=== PATIENT | female | born 1955 | race Caucasian/White ===

== ENCOUNTER → 2017-11-02 | Outpatient (CLI) | payer OTHER ==
[~2017-11-02] MED LIST: ABILIFY; ALEN70 PO; AMIT50 PO; AMIT75; AMITRIPTYLINE HCL; ARIP30 PO; ASPI325EC PO; ATOR40TA; ATOR40TA PO; CLON1; CLON2; CLON2 PO; CLOP75 PO; DIPH50; DIPH50 PO; DIVA500EC; DIVA500ER; EFFEXOR; FISH OIL 1,0001 EAC1; HYDACE5 PO; HYDPAM50 PO; IBUP800; K-Dur 20 meq T20 MEQ PO; LEVSOD75 PO; LINZESS145 MCG PO; LOPE2C PO; LORA2 PO; OMEPRAZOLE MAGN20 MG PO; OXYACE5T PO; Omeprazole20 M1 PO; PANT40 PO; PRED20; PROACE100; PROM25 PO; Percocet 5-3251 EACH PO; QUET200; QUET25 PO; Questran4 GM PO; SACC250C PO; SPIRIVA RESPIMAT4 GM INH; THYR60 PO; TRAZ100 PO; UNKNOWN MED; VITAMIN D-32000 UNIT PO; Ventolin/Prove6.7 GM INH; ZIPR80 PO
[2017-11-02 10:55] LABS: BASOPHILS ABSOLUTE AUTO 0.02 K/mm3 (0.00-0.23); BASOPHILS PERCENT AUTO 0 % (0-2); EOSINOPHILS ABSOLUTE AUTO 0.05 K/mm3 (0.00-0.68); EOSINOPHILS PERCENT AUTO 1 % (0-6); Hematocrit 37.6 % (33.0-51.0); Hemoglobin 12.2 g/dL (11.5-16.0); IMMATURE GRAN ABSOLUTE AUTO 0.01 K/mm3 (0.00-0.10); IMMATURE GRAN PERCENT AUTO 0 % (0-1); LYMPHOCYTES ABSOLUTE AUTO 1.09 K/mm3 (0.84-5.20); LYMPHOCYTES PERCENT AUTO 19 % (21-46); MONOCYTES ABSOLUTE AUTO 0.36 K/mm3 (0.16-1.47); MONOCYTES PERCENT AUTO 6 % (4-13); Mean Corpuscular HGB 27.9 pg (26.0-34.0); Mean Corpuscular HGB Conc 32.4 g/dL (31.5-36.5); Mean Corpuscular Volume 86 fL (80-100); Mean Platelet Volume 8.4 fL (9.1-12.4); NEUTROPHILS ABSOLUTE AUTO 4.24 K/mm3 (1.96-9.15); NEUTROPHILS PERCENT AUTO 74 % (41-73); Platelet Count 208 K/mm3 (150-400); RDW Coefficient Variation 14.7 % (11.7-14.2); Red Blood Cell Count 4.38 M/mm3 (3.80-5.20); White Blood Cell Count 5.77 K/mm3 (4.00-11.30)
[2017-11-02 11:03] LABS: Albumin, Blood 3.6 g/dL (3.4-5.0); Albumin/Globulin Ratio 0.9 (0.8-1.8); Bilirubin, Total 0.2 mg/dL (0.1-1.0); Bun/Creatinine Ratio 8.7 (12.0-20.0); Calcium, Blood 8.4 mg/dL (8.5-10.1); Creatinine, Blood 1.03 mg/dL (0.40-1.00); Globulin, Blood 3.9 g/dL (2.2-4.0); Potassium, Blood 4.2 mmol/L (3.5-5.5); Total Protein, Blood 7.5 g/dL (6.4-8.2)
== END | disposition home or self-care (01) ==
LOC: LAB EV 10:49
PROVIDERS: Physician Assistant
DX: R06.01 Orthopnea (principal)
CPT/HCPCS: 80053; 83880; 85025

== ENCOUNTER 2018-02-04 18:03 | Observation (INO) | payer OTHER ==
[~2018-02-04] VITALS: Ht 152.4 cm; Wt 75.3 kg
[~2018-02-04 18:03] MED LIST changes: -ASPI325EC PO; -ATOR40TA; -ATOR40TA PO; -CLOP75 PO; -FISH OIL 1,0001 EAC1; -HYDPAM50 PO; -K-Dur 20 meq T20 MEQ PO; -LEVSOD75 PO; -LINZESS145 MCG PO; -LOPE2C PO; -OMEPRAZOLE MAGN20 MG PO; -Omeprazole20 M1 PO; -PANT40 PO; -Questran4 GM PO; -SACC250C PO; -SPIRIVA RESPIMAT4 GM INH; -VITAMIN D-32000 UNIT PO; -Ventolin/Prove6.7 GM INH
[2018-02-04 19:11] LABS: BASOPHILS ABSOLUTE AUTO 0.06 K/mm3 (0.00-0.23); BASOPHILS PERCENT AUTO 1 % (0-2); EOSINOPHILS ABSOLUTE AUTO 0.17 K/mm3 (0.00-0.68); EOSINOPHILS PERCENT AUTO 2 % (0-6); Hematocrit 34.3 % (33.0-51.0); Hemoglobin 11.1 g/dL (11.5-16.0); IMMATURE GRAN ABSOLUTE AUTO 0.02 K/mm3 (0.00-0.10); IMMATURE GRAN PERCENT AUTO 0 % (0-1); LYMPHOCYTES ABSOLUTE AUTO 2.42 K/mm3 (0.84-5.20); LYMPHOCYTES PERCENT AUTO 25 % (21-46); MONOCYTES PERCENT AUTO 6 % (4-13); Mean Corpuscular HGB 28.2 pg (26.0-34.0); Mean Corpuscular HGB Conc 32.4 g/dL (31.5-36.5); Mean Corpuscular Volume 87 fL (80-100); Mean Platelet Volume 8.5 fL (9.1-12.4); NEUTROPHILS ABSOLUTE AUTO 6.52 K/mm3 (1.96-9.15); NEUTROPHILS PERCENT AUTO 67 % (41-73); Platelet Count 291 K/mm3 (150-400); RDW Coefficient Variation 16.3 % (11.7-14.2); RDW Standard Deviation 51.8 fL (35.1-46.3); Red Blood Cell Count 3.94 M/mm3 (3.80-5.20); White Blood Cell Count 9.79 K/mm3 (4.00-11.30)
[2018-02-04 19:29] LABS: Albumin, Blood 3.4 g/dL (3.4-5.0); Albumin/Globulin Ratio 0.9 (0.8-1.8); Bilirubin, Total 0.2 mg/dL (0.1-1.0); Bun/Creatinine Ratio 6.7 (12.0-20.0); Creatinine, Blood 1.05 mg/dL (0.40-1.00); Globulin, Blood 3.8 g/dL (2.2-4.0); Potassium, Blood 2.5 mmol/L (3.5-5.5); Total Protein, Blood 7.2 g/dL (6.4-8.2)
[2018-02-04] MEDS ORDERED: CLOP75 PO (19:39)
[2018-02-04] MEDS ORDERED: VITAMIN D-32000 UNIT PO (19:40)
[2018-02-04] MEDS ORDERED: LEVSOD75 PO (19:45)
[2018-02-04] MEDS ORDERED: LINZESS145 MCG PO (19:46)
[2018-02-04] MEDS ORDERED: OMEPRAZOLE MAGN20 MG PO (19:49)
[2018-02-04] MEDS ORDERED: SPIRIVA RESPIMAT4 GM INH (19:50)
[2018-02-04] MEDS ORDERED: Ventolin/Prove6.7 GM INH (19:51)
[2018-02-04] MEDS ORDERED: ASPI325EC PO (19:52)
[2018-02-04] MEDS ORDERED: ATOR40TA PO (19:53)
[2018-02-04] MEDS ORDERED: HYDPAM50 PO (19:53)
[2018-02-04 20:49] LABS: Magnesium, Blood 1.8 mg/dL (1.6-2.4)
[2018-02-05 05:33] LABS: Anion Gap 10 mmol/L (6-16); Blood Urea Nitrogen 7 mg/dL (8-24); Bun/Creatinine Ratio 7.4 (12.0-20.0); CO2, Blood 20 mmol/L (21-32); Chloride, Blood 119 mmol/L (98-108); Creatinine, Blood 0.95 mg/dL (0.40-1.00); Glomerular Filtration Rate >60 (60-); Glucose, Blood 107 mg/dL (70-99); Potassium, Blood 3.5 mmol/L (3.5-5.5); Sodium, Blood 149 mmol/L (136-145)
[2018-02-05 06:02] LABS: Mean Corpuscular HGB 28.2 pg (26.0-34.0); Mean Corpuscular HGB Conc 32.3 g/dL (31.5-36.5); Mean Corpuscular Volume 88 fL (80-100); Mean Platelet Volume 9.2 fL (9.1-12.4); Platelet Count 179 K/mm3 (150-400); RDW Coefficient Variation 16.4 % (11.7-14.2); RDW Standard Deviation 53.1 fL (35.1-46.3); Red Blood Cell Count 3.54 M/mm3 (3.80-5.20); White Blood Cell Count 6.98 K/mm3 (4.00-11.30)
[2018-02-06 05:44] LABS: BASOPHILS ABSOLUTE AUTO 0.04 K/mm3 (0.00-0.23); BASOPHILS PERCENT AUTO 1 % (0-2); EOSINOPHILS PERCENT AUTO 2 % (0-6); Hematocrit 31.1 % (33.0-51.0); Hemoglobin 9.9 g/dL (11.5-16.0); IMMATURE GRAN ABSOLUTE AUTO 0.01 K/mm3 (0.00-0.10); IMMATURE GRAN PERCENT AUTO 0 % (0-1); LYMPHOCYTES ABSOLUTE AUTO 1.99 K/mm3 (0.84-5.20); LYMPHOCYTES PERCENT AUTO 35 % (21-46); MONOCYTES ABSOLUTE AUTO 0.34 K/mm3 (0.16-1.47); MONOCYTES PERCENT AUTO 6 % (4-13); Mean Corpuscular HGB 28.2 pg (26.0-34.0); Mean Corpuscular HGB Conc 31.8 g/dL (31.5-36.5); Mean Corpuscular Volume 89 fL (80-100); Mean Platelet Volume 10.6 fL (9.1-12.4); NEUTROPHILS PERCENT AUTO 56 % (41-73); Platelet Count 80 K/mm3 (150-400); RDW Coefficient Variation 17.1 % (11.7-14.2); RDW Standard Deviation 54.7 fL (35.1-46.3); Red Blood Cell Count 3.51 M/mm3 (3.80-5.20); White Blood Cell Count 5.68 K/mm3 (4.00-11.30)
[2018-02-06 06:08] LABS: Albumin, Blood 2.7 g/dL (3.4-5.0); Anion Gap 9 mmol/L (6-16); Blood Urea Nitrogen 4 mg/dL (8-24); Bun/Creatinine Ratio 4.7 (12.0-20.0); CO2, Blood 19 mmol/L (21-32); Calcium, Blood 7.9 mg/dL (8.5-10.1); Chloride, Blood 120 mmol/L (98-108); Creatinine, Blood 0.85 mg/dL (0.40-1.00); Glomerular Filtration Rate >60 (60-); Glucose, Blood 96 mg/dL (70-99); Phosphorus, Blood 2.5 mg/dL (2.5-4.9); Potassium, Blood 3.5 mmol/L (3.5-5.5); Sodium, Blood 148 mmol/L (136-145)
[2018-02-06] MEDS ORDERED: Questran4 GM PO (12:24)
[2018-02-06] MEDS ORDERED: K-Dur 20 meq T20 MEQ PO (12:25)
[2018-02-06] MEDS ORDERED: LOPE2C PO (12:25)
[2018-02-06] MEDS ORDERED: PANT40 PO (12:26)
[2018-02-06] MEDS ORDERED: SACC250C PO (12:26)
== END 2018-02-06 13:42 | disposition home or self-care (01) ==
LOC: ER 18:03 → MEDS 20:31 → ENPENDDIS 02-06 11:04 → MEDS 02-06 13:42
PROVIDERS: Emergency Medicine; Family Medicine; Internal Medicine; Nurse Practitioner Acute Care
DX: K58.0 Irritable bowel syndrome with diarrhea (principal); N17.9 Acute kidney failure, unspecified; F32.9 Major depressive disorder, single episode, unspecified; K21.9 Gastro-esophageal reflux disease without esophagitis; E87.0 Hyperosmolality and hypernatremia; D64.9 Anemia, unspecified; E87.6 Hypokalemia; J44.9 Chronic obstructive pulmonary disease, unspecified; D69.6 Thrombocytopenia, unspecified; E03.9 Hypothyroidism, unspecified; Z86.73 Personal history of transient ischemic attack (TIA), and cerebral infarction without residual deficits; Z90.710 Acquired absence of both cervix and uterus; Z90.722 Acquired absence of ovaries, bilateral; Z79.01 Long term (current) use of anticoagulants; Z79.82 Long term (current) use of aspirin; Z79.899 Other long term (current) drug therapy; Z88.8 Allergy status to other drugs, medicaments and biological substances
CPT/HCPCS: 36415; 74177; 80048; 80053; 80069; 83735; 83993; 85025; 85027; 89055; 94640; 94760; 96360; 96361; 96372; 96374; 99285; G0378; J1650; J3010; J3480; Q9967

== ENCOUNTER → 2018-02-27 | Outpatient (CLI) | payer OTHER ==
[~2018-02-27] MED LIST changes: +ASPI325EC PO; +ATOR40TA PO; +CLOP75 PO; +HYDPAM50 PO; +K-Dur 20 meq T20 MEQ PO; +LEVSOD75 PO; +LINZESS145 MCG PO; +LOPE2C PO; +OMEPRAZOLE MAGN20 MG PO; +PANT40 PO; +Questran4 GM PO; +SACC250C PO; +SPIRIVA RESPIMAT4 GM INH; +VITAMIN D-32000 UNIT PO; +Ventolin/Prove6.7 GM INH
[2018-02-27 10:40] LABS: Adenovirus F 40/41 Not Detected (NOT DETECT); Astrovirus Not Detected (NOT DETECT); Campylobacter Sp Not Detected (NOT DETECT); Cryptosporidium Not Detected (NOT DETECT); Cyclospora Cayetanensis Not Detected (NOT DETECT); E. Coli O157 Not Detected (NOT DETECT); Entamoeba Histolytica Not Detected (NOT DETECT); Enteroaggregative E. coli-EAEC Not Detected (NOT DETECT); Enteropathogenic E. coli-EPEC Not Detected (NOT DETECT); Enterotoxigenic E. coli-ETEC Not Detected (NOT DETECT); Giardia Lamblia Not Detected (NOT DETECT); Norovirus GI/GII Not Detected (NOT DETECT); Plesiomonas Shigelloides Not Detected (NOT DETECT); Rotavirus A Not Detected (NOT DETECT); Salmonella Sp Not Detected (NOT DETECT); Sapovirus Not Detected (NOT DETECT); Shiga Toxin-prod E. coli-STEC Not Detected (NOT DETECT); Shigella/Enteroin E. coli-EIEC Not Detected (NOT DETECT); Vibrio Cholerae Not Detected (NOT DETECT); Vibrio Sp Not Detected (NOT DETECT); Yersinia Enterocolitica Not Detected (NOT DETECT)
[2018-02-27 11:01] LABS: Albumin, Blood 4.1 g/dL (3.4-5.0); Albumin/Globulin Ratio 1.2 (0.8-1.8); Bilirubin, Total 0.3 mg/dL (0.1-1.0); Creatinine, Blood 1.09 mg/dL (0.40-1.00); Globulin, Blood 3.4 g/dL (2.2-4.0); Potassium, Blood 3.2 mmol/L (3.5-5.5); Total Protein, Blood 7.5 g/dL (6.4-8.2)
[2018-02-27 11:02] LABS: BASOPHILS ABSOLUTE AUTO 0.08 K/mm3 (0.00-0.23); BASOPHILS PERCENT AUTO 1 % (0-2); EOSINOPHILS ABSOLUTE AUTO 0.21 K/mm3 (0.00-0.68); EOSINOPHILS PERCENT AUTO 2 % (0-6); Hematocrit 38.2 % (33.0-51.0); Hemoglobin 12.6 g/dL (11.5-16.0); IMMATURE GRAN ABSOLUTE AUTO 0.02 K/mm3 (0.00-0.10); IMMATURE GRAN PERCENT AUTO 0 % (0-1); LYMPHOCYTES ABSOLUTE AUTO 2.03 K/mm3 (0.84-5.20); LYMPHOCYTES PERCENT AUTO 22 % (21-46); MONOCYTES PERCENT AUTO 5 % (4-13); Mean Corpuscular HGB 29.4 pg (26.0-34.0); Mean Platelet Volume 8.6 fL (9.1-12.4); NEUTROPHILS ABSOLUTE AUTO 6.39 K/mm3 (1.96-9.15); NEUTROPHILS PERCENT AUTO 69 % (41-73); Platelet Count 276 K/mm3 (150-400); RDW Coefficient Variation 18.3 % (11.7-14.2); RDW Standard Deviation 59.4 fL (35.1-46.3); Red Blood Cell Count 4.28 M/mm3 (3.80-5.20); White Blood Cell Count 9.23 K/mm3 (4.00-11.30)
[2018-02-27 11:04] LABS: Mean Corpuscular Volume 89 fL (80-100)
[2018-03-01 13:07] LABS: T-TRANSGLUTAMINASE (TTG) IGA <2 U/mL (0-3); T-TRANSGLUTAMINASE (TTG) IGG <2 U/mL (0-5)
== END | disposition home or self-care (01) ==
LOC: LAB EV 10:38 → LAB SHORT 10:38
PROVIDERS: General Practice
DX: R19.7 Diarrhea, unspecified (principal)
CPT/HCPCS: 80053; 83690; 85025; 87507

== ENCOUNTER 2018-10-03 19:21 | Emergency (ER) | payer OTHER ==
[~2018-10-03] VITALS: Ht 154.9 cm; Wt 77.1 kg
[~2018-10-03 19:21] MED LIST changes: +ATOR40TA; +FISH OIL 1,0001 EAC1; +Omeprazole20 M1 PO
[2018-10-03 20:52] LABS: BASOPHILS ABSOLUTE AUTO 0.08 K/mm3 (0.00-0.23); BASOPHILS PERCENT AUTO 1 % (0-2); EOSINOPHILS ABSOLUTE AUTO 0.16 K/mm3 (0.00-0.68); EOSINOPHILS PERCENT AUTO 1 % (0-6); Hematocrit 36.9 % (33.0-51.0); IMMATURE GRAN ABSOLUTE AUTO 0.04 K/mm3 (0.00-0.10); IMMATURE GRAN PERCENT AUTO 0 % (0-1); LYMPHOCYTES ABSOLUTE AUTO 2.46 K/mm3 (0.84-5.20); LYMPHOCYTES PERCENT AUTO 18 % (21-46); MONOCYTES ABSOLUTE AUTO 0.94 K/mm3 (0.16-1.47); MONOCYTES PERCENT AUTO 7 % (4-13); Mean Corpuscular HGB 31.4 pg (26.0-34.0); Mean Corpuscular HGB Conc 32.5 g/dL (31.5-36.5); Mean Corpuscular Volume 97 fL (80-100); Mean Platelet Volume 8.8 fL (9.1-12.4); NEUTROPHILS ABSOLUTE AUTO 9.97 K/mm3 (1.96-9.15); NEUTROPHILS PERCENT AUTO 73 % (41-73); Platelet Count 329 K/mm3 (150-400); RDW Coefficient Variation 16.6 % (11.7-14.2); RDW Standard Deviation 58.5 fL (35.1-46.3); Red Blood Cell Count 3.82 M/mm3 (3.80-5.20); White Blood Cell Count 13.65 K/mm3 (4.00-11.30)
[2018-10-03 21:12] LABS: Alanine Aminotransfer (ALT/SGP 16 U/L (12-78); Albumin, Blood 3.8 g/dL (3.4-5.0); Albumin/Globulin Ratio 1.1 (0.8-1.8); Alk Phos 99 U/L (50-136); Anion Gap 7 mmol/L (6-16); Aspartate Aminotrans (AST/SGOT 13 U/L (12-37); Bilirubin, Total 0.2 mg/dL (0.1-1.0); Blood Urea Nitrogen 15 mg/dL (8-24); Bun/Creatinine Ratio 16.7 (12.0-20.0); CO2, Blood 26 mmol/L (21-32); Calcium, Blood 8.9 mg/dL (8.5-10.1); Chloride, Blood 111 mmol/L (98-108); Globulin, Blood 3.4 g/dL (2.2-4.0); Glomerular Filtration Rate >60 (60-); Glucose, Blood 93 mg/dL (70-99); Potassium, Blood 3.9 mmol/L (3.5-5.5); Sodium, Blood 144 mmol/L (136-145); Total Protein, Blood 7.2 g/dL (6.4-8.2); Troponin I <0.015 ng/mL (0.000-0.040)
[2018-10-03] MEDS ORDERED: Pepcid20 MG PO (22:30)
== END 2018-10-03 22:43 | disposition home or self-care (01) ==
LOC: ER 19:21
PROVIDERS: Physician Assistant
DX: R07.89 Other chest pain (principal); Z88.8 Allergy status to other drugs, medicaments and biological substances; Z79.899 Other long term (current) drug therapy; Z79.82 Long term (current) use of aspirin; F31.9 Bipolar disorder, unspecified; I25.2 Old myocardial infarction
CPT/HCPCS: 36415; 71046; 80053; 84484; 85025; 93005; 93010; 96374; 99285-25; J0780

== ENCOUNTER 2018-12-13 20:20 | Emergency (ER) | payer OTHER ==
[~2018-12-13] VITALS: Ht 152.4 cm; Wt 72.6 kg
[~2018-12-13 20:20] MED LIST changes: +Pepcid20 MG PO
[2018-12-13] MEDS ORDERED: Naprosyn500 MG PO (21:46)
[2018-12-13] MEDS ORDERED: Cyclobenzaprine5 MG PO (21:46)
[2018-12-13] MEDS ORDERED: Prednisone20 MG PO (21:46)
== END 2018-12-13 22:11 | disposition home or self-care (01) ==
LOC: ER 20:20
DX: M54.41 Lumbago with sciatica, right side (principal); M54.42 Lumbago with sciatica, left side; G89.29 Other chronic pain; Z88.8 Allergy status to other drugs, medicaments and biological substances; Z79.899 Other long term (current) drug therapy; Z79.82 Long term (current) use of aspirin; F31.9 Bipolar disorder, unspecified; I25.2 Old myocardial infarction
CPT/HCPCS: 96372; 99283-25; J1100; J1885

== ENCOUNTER 2018-12-20 11:24 | Emergency (ER) | payer OTHER ==
[~2018-12-20] VITALS: Ht 177.8 cm; Wt 70.3 kg
[~2018-12-20 11:24] MED LIST changes: +Cyclobenzaprine5 MG PO; +Naprosyn500 MG PO; +Prednisone20 MG PO
[2018-12-20] MEDS ORDERED: Norco 5-325 Ta1 EACH PO (13:01)
[2018-12-20] MEDS ORDERED: Cyclobenzaprine5 MG PO (13:01)
== END 2018-12-20 13:40 | disposition home or self-care (01) ==
LOC: ER 11:24
DX: S22.089A Unspecified fracture of T11-T12 vertebra, initial encounter for closed fracture (principal); M54.5 Low back pain; I25.2 Old myocardial infarction; F31.9 Bipolar disorder, unspecified; J44.9 Chronic obstructive pulmonary disease, unspecified; E03.9 Hypothyroidism, unspecified; Z86.73 Personal history of transient ischemic attack (TIA), and cerebral infarction without residual deficits; Z79.899 Other long term (current) drug therapy; W19.XXXA Unspecified fall, initial encounter
CPT/HCPCS: 72100; J1885

== ENCOUNTER 2019-02-11 15:04 | Emergency (ER) | payer OTHER ==
[~2019-02-11] VITALS: Ht 152.4 cm; Wt 72.6 kg
[~2019-02-11 15:04] MED LIST changes: +Norco 5-325 Ta1 EACH PO
[2019-02-11 17:08] LABS: BASOPHILS PERCENT AUTO 1 % (0-2); EOSINOPHILS ABSOLUTE AUTO 0.14 K/mm3 (0.00-0.68); EOSINOPHILS PERCENT AUTO 1 % (0-6); Hematocrit 40.4 % (33.0-51.0); Hemoglobin 13.1 g/dL (11.5-16.0); IMMATURE GRAN ABSOLUTE AUTO 0.03 K/mm3 (0.00-0.10); IMMATURE GRAN PERCENT AUTO 0 % (0-1); LYMPHOCYTES ABSOLUTE AUTO 2.58 K/mm3 (0.84-5.20); LYMPHOCYTES PERCENT AUTO 24 % (21-46); MONOCYTES ABSOLUTE AUTO 0.74 K/mm3 (0.16-1.47); MONOCYTES PERCENT AUTO 7 % (4-13); Mean Corpuscular HGB 31.8 pg (26.0-34.0); Mean Corpuscular HGB Conc 32.4 g/dL (31.5-36.5); Mean Corpuscular Volume 98 fL (80-100); Mean Platelet Volume 9.1 fL (9.1-12.4); NEUTROPHILS ABSOLUTE AUTO 7.33 K/mm3 (1.96-9.15); NEUTROPHILS PERCENT AUTO 67 % (41-73); Platelet Count 326 K/mm3 (150-400); RDW Coefficient Variation 13.5 % (11.7-14.2); RDW Standard Deviation 48.7 fL (35.1-46.3); Red Blood Cell Count 4.12 M/mm3 (3.80-5.20); White Blood Cell Count 10.92 K/mm3 (4.00-11.30)
[2019-02-11 17:37] LABS: Alanine Aminotransfer (ALT/SGP 17 U/L (12-78); Albumin, Blood 4.2 g/dL (3.4-5.0); Albumin/Globulin Ratio 1.2 (0.8-1.8); Alk Phos 95 U/L (50-136); Anion Gap 8 mmol/L (6-16); Aspartate Aminotrans (AST/SGOT 19 U/L (12-37); Bilirubin, Total 0.2 mg/dL (0.1-1.0); Blood Urea Nitrogen 20 mg/dL (8-24); Bun/Creatinine Ratio 24.1 (12.0-20.0); CO2, Blood 20 mmol/L (21-32); Calcium, Blood 9.1 mg/dL (8.5-10.1); Chloride, Blood 113 mmol/L (98-108); Creatinine, Blood 0.83 mg/dL (0.40-1.00); Globulin, Blood 3.6 g/dL (2.2-4.0); Glomerular Filtration Rate >60 (60-); Glucose, Blood 84 mg/dL (70-99); Potassium, Blood 4.1 mmol/L (3.5-5.5); Sodium, Blood 141 mmol/L (136-145); Total Protein, Blood 7.8 g/dL (6.4-8.2); Troponin I <0.015 ng/mL (0.000-0.040)
[2019-02-11] MEDS ORDERED: Naprosyn500 MG PO (17:47)
== END 2019-02-11 18:53 | disposition home or self-care (01) ==
LOC: ER 15:04
PROVIDERS: Physician Assistant
DX: M94.0 Chondrocostal junction syndrome [Tietze] (principal); F31.9 Bipolar disorder, unspecified; E03.9 Hypothyroidism, unspecified; Z86.73 Personal history of transient ischemic attack (TIA), and cerebral infarction without residual deficits; Z79.82 Long term (current) use of aspirin; Z79.899 Other long term (current) drug therapy
CPT/HCPCS: 36415; 71046; 80053; 84484; 85025; 93005; 93010; 96374; 96375; 99285-25; J1170; J1885

== ENCOUNTER 2019-08-06 21:11 | Emergency (ER) | payer OTHER ==
[~2019-08-06] VITALS: Ht 152.4 cm; Wt 68.0 kg
[2019-08-06 22:09] LABS: Influenza A Negative (NEGATIVE); Influenza B Negative (NEGATIVE)
[2019-08-07] MEDS ORDERED: ALBU90OI INH (00:36)
[2019-08-07] MEDS ORDERED: Prednisone20 MG PO (00:36)
[2019-08-07] MEDS ORDERED: BENZ100A PO (00:36)
== END 2019-08-07 01:24 | disposition home or self-care (01) ==
LOC: ER 21:11
PROVIDERS: Physician Assistant
DX: J06.9 Acute upper respiratory infection, unspecified (principal); R51 Headache; Z88.8 Allergy status to other drugs, medicaments and biological substances; Z79.899 Other long term (current) drug therapy; F31.9 Bipolar disorder, unspecified
CPT/HCPCS: 71046; 87081; 87430; 87804; 99283-25; A9270-GY; J1100

== ENCOUNTER 2019-09-08 02:32 | Emergency (ER) | payer OTHER ==
[~2019-09-08] VITALS: Ht 152.4 cm; Wt 68.0 kg
[~2019-09-08 02:32] MED LIST changes: +ALBU90OI INH; +BENZ100A PO
[2019-09-08] MEDS ORDERED: AZIT250 PO (02:43)
[2019-09-08] MEDS ORDERED: TRAZ100 PO (02:43)
[2019-09-08] MEDS ORDERED: PLAVIX75 MG PO (02:43)
[2019-09-08] MEDS ORDERED: Prednisone20 MG PO (04:36)
== END 2019-09-08 04:50 | disposition home or self-care (01) ==
LOC: ER 02:32
DX: R06.02 Shortness of breath (principal); F31.9 Bipolar disorder, unspecified; Z88.8 Allergy status to other drugs, medicaments and biological substances; Z79.899 Other long term (current) drug therapy; Z79.01 Long term (current) use of anticoagulants
CPT/HCPCS: 36415; 71046; 94640; 96374; 96375; 99283-25; J1885; J2930

== ENCOUNTER → 2022-05-04 | Outpatient (CLI) | payer MEDICARE ==
[~2022-05-04] MED LIST changes: +AZIT250 PO; +PLAVIX75 MG PO
[2022-05-04 15:48] LABS: BASOPHILS ABSOLUTE AUTO 0.04 K/mm3 (0.00-0.23); BASOPHILS PERCENT AUTO 0 % (0-2); EOSINOPHILS PERCENT AUTO 0 % (0-6); Hematocrit 36.5 % (33.0-51.0); Hemoglobin 12.1 g/dL (11.5-16.0); IMMATURE GRAN ABSOLUTE AUTO 0.02 K/mm3 (0.00-0.10); IMMATURE GRAN PERCENT AUTO 0 % (0-1); LYMPHOCYTES PERCENT AUTO 4 % (21-46); MONOCYTES ABSOLUTE AUTO 0.36 K/mm3 (0.16-1.47); MONOCYTES PERCENT AUTO 3 % (4-13); Mean Corpuscular HGB 29.7 pg (26.0-34.0); Mean Corpuscular HGB Conc 33.2 g/dL (31.5-36.5); Mean Corpuscular Volume 90 fL (80-100); Mean Platelet Volume 8.9 fL (9.1-12.4); NEUTROPHILS ABSOLUTE AUTO 9.82 K/mm3 (1.96-9.15); NEUTROPHILS PERCENT AUTO 92 % (41-73); Platelet Count 384 K/mm3 (150-400); RDW Coefficient Variation 12.7 % (11.7-14.2); RDW Standard Deviation 41.5 fL (35.1-46.3); Red Blood Cell Count 4.08 M/mm3 (3.80-5.20); White Blood Cell Count 10.64 K/mm3 (4.00-11.30)
[2022-05-04 15:57] LABS: Albumin, Blood 3.6 g/dL (3.4-5.0); Albumin/Globulin Ratio 0.9 (0.8-1.8); Bilirubin, Total 0.5 mg/dL (0.1-1.0); Bun/Creatinine Ratio 16.9 (12.0-20.0); Calcium, Blood 9.1 mg/dL (8.5-10.1); Creatinine, Blood 1.24 mg/dL (0.40-1.00); Globulin, Blood 4.2 g/dL (2.2-4.0); Potassium, Blood 3.1 mmol/L (3.5-5.5); Total Protein, Blood 7.8 g/dL (6.4-8.2)
[2022-05-04 16:19] LABS: BAND PERCENT MAN 22 % (0-8); BASOPHILS PERCENT MAN 1 % (0-2); EOSINOPHILS PERCENT MAN 0 % (0-6); LYMPHOCYTES ABSOLUTE MAN 0.53 K/mm3 (0.84-5.20); LYMPHOCYTES PERCENT MAN 5 % (21-46); MONOCYTES ABSOLUTE MAN 0.21 K/mm3 (0.16-1.47); MONOCYTES PERCENT MAN 2 % (4-13); NEUTROPHILS ABSOLUTE MAN 9.78 K/mm3 (1.96-9.15); SEG NEUTROPHILS PERCENT MAN 70 % (41-73); TOTAL CELLS COUNTED 100
== END | disposition home or self-care (01) ==
LOC: LAB SHORT 15:41 → LAB 15:41
PROVIDERS: Physician Assistant
DX: R10.9 Unspecified abdominal pain (principal)
CPT/HCPCS: 80053; 83690; 85025

== ENCOUNTER 2022-06-03 18:01 | Emergency (ER) | payer MEDICARE ==
[~2022-06-03] VITALS: Ht 152.4 cm; Wt 69.8 kg
[~2022-06-03 18:01] MED LIST changes: +AMLO5 PO; +AMOX875 PO; +Acetaminophen650 M1 PO; +LASIX20 M2 PO; +METO50ER PO; +PANT20 PO; +POTCHL20ER PO
[2022-06-03] MEDS ORDERED: DOXY100 PO (19:28)
== END 2022-06-03 19:45 | disposition home or self-care (01) ==
LOC: ER 18:01
DX: Z48.00 Encounter for change or removal of nonsurgical wound dressing (principal); S31.109A Unspecified open wound of abdominal wall, unspecified quadrant without penetration into peritoneal cavity, initial encounter; X58.XXXA Exposure to other specified factors, initial encounter; Z88.8 Allergy status to other drugs, medicaments and biological substances; Z79.899 Other long term (current) drug therapy; Z86.73 Personal history of transient ischemic attack (TIA), and cerebral infarction without residual deficits
CPT/HCPCS: 99283; A9270

== ENCOUNTER 2022-06-06 04:14 | Day surgery (SDC) | payer MEDICARE ==
[~2022-06-06 04:14] MED LIST changes: +DOXY100 PO
== END 2022-06-06 22:51 | disposition home or self-care (01) ==
LOC: WOUND 04:14
DX: T81.31XD Disruption of external operation (surgical) wound, not elsewhere classified, subsequent encounter (principal); I10 Essential (primary) hypertension
CPT/HCPCS: G0463

== ENCOUNTER 2022-06-13 02:26 | Day surgery (SDC) | payer MEDICARE | END 2022-06-13 22:44 | disposition home or self-care (01) | LOC: WOUND 02:26 | DX: T81.31XD Disruption of external operation (surgical) wound, not elsewhere classified, subsequent encounter (principal); S31.609D Unspecified open wound of abdominal wall, unspecified quadrant with penetration into peritoneal cavity, subsequent encounter; S31.105D Unspecified open wound of abdominal wall, periumbilic region without penetration into peritoneal cavity, subsequent encounter; X58.XXXD Exposure to other specified factors, subsequent encounter; I10 Essential (primary) hypertension | CPT/HCPCS: A9270; G0463 ==

== ENCOUNTER 2022-06-20 02:07 | Day surgery (SDC) | payer MEDICARE | END 2022-06-20 22:49 | disposition home or self-care (01) | LOC: WOUND 02:07 | DX: T81.89XA Other complications of procedures, not elsewhere classified, initial encounter (principal); I10 Essential (primary) hypertension | CPT/HCPCS: G0463 ==

== ENCOUNTER 2022-06-27 01:31 | Day surgery (SDC) | payer MEDICARE | END 2022-06-27 23:40 | disposition home or self-care (01) | LOC: WOUND 01:31 | DX: T81.32XA Disruption of internal operation (surgical) wound, not elsewhere classified, initial encounter (principal); I10 Essential (primary) hypertension | CPT/HCPCS: A9270; G0463 ==

== ENCOUNTER 2022-07-04 02:28 | Day surgery (SDC) | payer MEDICARE | END 2022-07-04 23:22 | disposition home or self-care (01) | LOC: WOUND 02:28 | DX: T81.31XD Disruption of external operation (surgical) wound, not elsewhere classified, subsequent encounter (principal); I10 Essential (primary) hypertension; S31.60 Unspecified open wound of abdominal wall with penetration into peritoneal cavity | CPT/HCPCS: A9270; G0463 ==

== ENCOUNTER 2022-07-11 00:39 | Day surgery (SDC) | payer MEDICARE | END 2022-07-11 23:10 | disposition home or self-care (01) | LOC: WOUND 00:39 | DX: T81.32XA Disruption of internal operation (surgical) wound, not elsewhere classified, initial encounter (principal); I10 Essential (primary) hypertension | CPT/HCPCS: A9270; G0463 ==

== ENCOUNTER 2022-07-25 02:12 | Day surgery (SDC) | payer MEDICARE | END 2022-07-25 23:01 | disposition home or self-care (01) | LOC: WOUND 02:12 | DX: T81.32XA Disruption of internal operation (surgical) wound, not elsewhere classified, initial encounter (principal); I10 Essential (primary) hypertension | CPT/HCPCS: A9270; G0463 ==

== ENCOUNTER 2022-08-08 01:27 | Day surgery (SDC) | payer MEDICARE | END 2022-08-08 22:50 | disposition home or self-care (01) | LOC: WOUND 01:27 | DX: Z09 Encounter for follow-up examination after completed treatment for conditions other than malignant neoplasm (principal); I10 Essential (primary) hypertension | CPT/HCPCS: G0463 ==

== ENCOUNTER 2022-08-16 21:12 | Emergency (ER) | payer MEDICARE ==
[~2022-08-16] VITALS: Ht 152.4 cm; Wt 68.0 kg
[2022-08-16 22:49] LABS: BASOPHILS ABSOLUTE AUTO 0.06 K/mm3 (0.00-0.23); BASOPHILS PERCENT AUTO 1 % (0-2); EOSINOPHILS ABSOLUTE AUTO 0.12 K/mm3 (0.00-0.68); EOSINOPHILS PERCENT AUTO 2 % (0-6); Hemoglobin 11.8 g/dL (11.5-16.0); IMMATURE GRAN ABSOLUTE AUTO 0.01 K/mm3 (0.00-0.10); IMMATURE GRAN PERCENT AUTO 0 % (0-1); LYMPHOCYTES ABSOLUTE AUTO 2.01 K/mm3 (0.84-5.20); LYMPHOCYTES PERCENT AUTO 32 % (21-46); MONOCYTES ABSOLUTE AUTO 0.51 K/mm3 (0.16-1.47); MONOCYTES PERCENT AUTO 8 % (4-13); Mean Corpuscular HGB 30.8 pg (26.0-34.0); Mean Corpuscular HGB Conc 32.8 g/dL (31.5-36.5); Mean Corpuscular Volume 94 fL (80-100); Mean Platelet Volume 8.9 fL (9.1-12.4); NEUTROPHILS ABSOLUTE AUTO 3.54 K/mm3 (1.96-9.15); NEUTROPHILS PERCENT AUTO 57 % (41-73); Platelet Count 234 K/mm3 (150-400); RDW Coefficient Variation 14.4 % (11.7-14.2); RDW Standard Deviation 49.7 fL (35.1-46.3); Red Blood Cell Count 3.83 M/mm3 (3.80-5.20); White Blood Cell Count 6.25 K/mm3 (4.00-11.30)
[2022-08-16 23:10] LABS: Albumin, Blood 3.8 g/dL (3.4-5.0); Albumin/Globulin Ratio 1.1 (0.8-1.8); Bilirubin, Total 0.2 mg/dL (0.1-1.0); Bun/Creatinine Ratio 27.4 (12.0-20.0); Creatinine, Blood 0.73 mg/dL (0.40-1.00); Globulin, Blood 3.4 g/dL (2.2-4.0); Potassium, Blood 3.5 mmol/L (3.5-5.5); Total Protein, Blood 7.2 g/dL (6.4-8.2)
== END 2022-08-17 02:18 | disposition home or self-care (01) ==
LOC: ER 21:12
PROVIDERS: Student in an Organized Health Care Education/Training Program
DX: K59.00 Constipation, unspecified (principal); I25.2 Old myocardial infarction; J44.9 Chronic obstructive pulmonary disease, unspecified; Z88.8 Allergy status to other drugs, medicaments and biological substances; Z79.899 Other long term (current) drug therapy; Z86.73 Personal history of transient ischemic attack (TIA), and cerebral infarction without residual deficits
CPT/HCPCS: 74177; 80053; 83690; 85025; J1885; Q9967

== ENCOUNTER 2022-09-13 09:12 | Day surgery (SDC) | payer MEDICARE ==
[~2022-09-13] VITALS: Ht 152.4 cm; Wt 64.1 kg
[2022-09-13] MEDS ORDERED: CLOP75 (10:32)
[2022-09-13] MEDS ORDERED: ATOR10 (10:32)
[2022-09-13] MEDS ORDERED: FISH OIL 1,2001 EAC7 (10:33)
== END 2022-09-13 11:38 | disposition home or self-care (01) ==
LOC: ORSCSDS 09:12
PROVIDERS: Surgery
PROC: 0DB68ZX Excision of Stomach, Via Natural or Artificial Opening Endoscopic, Diagnostic (ICD-10-PCS; principal; 2022-09-13 10:45)
DX: Z87.11 Personal history of peptic ulcer disease (principal); F31.9 Bipolar disorder, unspecified; J44.9 Chronic obstructive pulmonary disease, unspecified; I25.2 Old myocardial infarction; E03.9 Hypothyroidism, unspecified; Z79.899 Other long term (current) drug therapy
CPT/HCPCS: 88305; 88342; J2704; J7120

== ENCOUNTER 2023-03-17 10:17 | Emergency (ER) | payer MEDICARE, OTHER ==
[~2023-03-17] VITALS: Ht 152.4 cm; Wt 68.0 kg
[~2023-03-17 10:17] MED LIST changes: +ATOR10; +CLOP75; +FISH OIL 1,2001 EAC7
[2023-03-17] MEDS ORDERED: ASPI81CH PO (10:44)
[2023-03-17 11:23] LABS: BASOPHILS ABSOLUTE AUTO 0.04 K/mm3 (0.00-0.23); BASOPHILS PERCENT AUTO 1 % (0-2); EOSINOPHILS ABSOLUTE AUTO 0.06 K/mm3 (0.00-0.68); EOSINOPHILS PERCENT AUTO 1 % (0-6); Hematocrit 37.8 % (33.0-51.0); Hemoglobin 12.4 g/dL (11.5-16.0); IMMATURE GRAN ABSOLUTE AUTO 0.01 K/mm3 (0.00-0.10); IMMATURE GRAN PERCENT AUTO 0 % (0-1); LYMPHOCYTES ABSOLUTE AUTO 1.33 K/mm3 (0.84-5.20); LYMPHOCYTES PERCENT AUTO 25 % (21-46); MONOCYTES ABSOLUTE AUTO 0.38 K/mm3 (0.16-1.47); MONOCYTES PERCENT AUTO 7 % (4-13); Mean Corpuscular HGB 32.6 pg (26.0-34.0); Mean Corpuscular HGB Conc 32.8 g/dL (31.5-36.5); Mean Corpuscular Volume 100 fL (80-100); Mean Platelet Volume 8.9 fL (9.1-12.4); NEUTROPHILS ABSOLUTE AUTO 3.43 K/mm3 (1.96-9.15); NEUTROPHILS PERCENT AUTO 65 % (41-73); Platelet Count 249 K/mm3 (150-400); RDW Coefficient Variation 11.9 % (11.7-14.2); RDW Standard Deviation 43.4 fL (35.1-46.3); White Blood Cell Count 5.25 K/mm3 (4.00-11.30)
[2023-03-17 11:24] VITALS: BP 171/64
[2023-03-17 11:39] LABS: Albumin, Blood 3.9 g/dL (3.4-5.0); Albumin/Globulin Ratio 1.3 (0.8-1.8); Bilirubin, Total 0.3 mg/dL (0.1-1.0); Creatinine, Blood 0.77 mg/dL (0.40-1.00); Potassium, Blood 3.7 mmol/L (3.5-5.5); Total Protein, Blood 6.9 g/dL (6.4-8.2)
[2023-03-17] MEDS ORDERED: MECL25 PO (11:59)
[2023-03-17] MEDS ORDERED: ONDA4ODT MM (11:59)
== END 2023-03-17 12:10 | disposition home or self-care (01) ==
LOC: ER 10:17
PROVIDERS: Emergency Medicine
DX: R42 Dizziness and giddiness (principal); R11.2 Nausea with vomiting, unspecified; Z86.73 Personal history of transient ischemic attack (TIA), and cerebral infarction without residual deficits; Z88.8 Allergy status to other drugs, medicaments and biological substances; Z79.02 Long term (current) use of antithrombotics/antiplatelets; Z79.82 Long term (current) use of aspirin
CPT/HCPCS: 80053; 85025; 93005; 93010; 96374; 99284-25; A9270; J2765

== ENCOUNTER 2025-08-03 07:23 | Day surgery (SDC) | payer MEDICARE ==
[~2025-08-03] VITALS: Ht 152.4 cm; Wt 60.3 kg
[2025-08-03] VITALS (22 sets, daily range): BP systolic 121–182; BP diastolic 52–102
[~2025-08-03 07:23] MED LIST changes: +ASPI81CH PO; +MECL25 PO; +ONDA4ODT MM
--- NOTE | 2025-08-03 08:17 | NUR ---
Ambulatory in Day Surgery. History, Chart, Medications and Allergies reviewed before start of procedure. Patient confirms NPO status and agrees with scheduled surgery. Pre-Op teaching done. Pt verbalizes understanding. Patient States Post-Procedure ride home has been arranged.
--- NOTE | 2025-08-03 08:54 | NUR ---
08/03/25 0854 Breana Avila CONFIRMED AND REVIEWED H&P, MEDCICATIONS, ALLERGIES, MEDICAL HISTORY, RESPIRATORY HISTORY, VITAL SIGNS, 3-LEAD EKG, CONSENTS, AND PHYSICIAN ORDERS. PATIENT CONFIRMS NPO STATUS AND AGREES WITH SCHEDULED PROCEDURE. MONITOR INTACT WITH CONTINUOUS PULSE OXIMETRY, CAPNOGRAPHY, 3-LEAD EKG, INTERMITTENT BP. SUPPLEMENTAL O2 TO BE TITRATED THROUGHOUT PROCEDURE TO MAINTAIN O2 SATURATION ABOVE 90%. PATIENT DETERMINED TO BE ASA APPROPRIATE FOR PROPOFOL SEDATION PRIOR TO START OF PROCEDURE BY DR. WILLSON.
--- NOTE | 2025-08-03 09:49 | NUR ---
DIFFICULT IV START, MULTIPLE RN ATTEMPT. ULTIMATELY SUCCESSFUL W/20G IV TO RIGHT HAND. PT CHARO MULTIPLE ATTEMPTS WELL.
--- NOTE | 2025-08-03 10:11 | NUR ---
Patient States Post-Procedure ride home has been arranged. Discharge instructions reviewed with patient. Patient verbalizes understanding. Copy given to patient to take home. Discharged via wheelchair to private car for ride home.
== END 2025-08-03 23:20 | disposition home or self-care (01) ==
LOC: ORSCMMR 07:23 → ORD 09:00 → ORSCMMR 09:00
PROVIDERS: Surgery
PROC: 0DBK8ZX Excision of Ascending Colon, Via Natural or Artificial Opening Endoscopic, Diagnostic (ICD-10-PCS; principal; 2025-08-03 09:00)
DX: Z12.11 Encounter for screening for malignant neoplasm of colon (principal); D12.2 Benign neoplasm of ascending colon; Z86.0102 Personal history of hyperplastic colon polyps; I12.9 Hypertensive chronic kidney disease with stage 1 through stage 4 chronic kidney disease, or unspecified chronic kidney disease; N18.4 Chronic kidney disease, stage 4 (severe); E03.9 Hypothyroidism, unspecified; F31.9 Bipolar disorder, unspecified; Z79.899 Other long term (current) drug therapy
CPT/HCPCS: 88305; J2704; J7120